=== PATIENT | female | born 1990 | race African-American/Black ===

== ENCOUNTER 2020-09-01 14:42 | Emergency (ER) | payer OTHER ==
[2020-09-01] MEDS ORDERED: Bacitracin 1 PK ONE (15:45)
== END 2020-09-01 15:56 | disposition home or self-care (01) ==
LOC: MADERS 14:42
DX: S71.152A Open bite, left thigh, initial encounter (principal); W54.0XXA Bitten by dog, initial encounter
CPT/HCPCS: 99283

== ENCOUNTER 2023-11-19 05:13 | Emergency (ER) | payer OTHER ==
[2023-11-19] MEDS ORDERED: Dexamethasone 4 MG TAB ONE (05:30)
== END 2023-11-19 05:50 | disposition home or self-care (01) ==
LOC: MADERS 05:13
DX: J03.90 Acute tonsillitis, unspecified (principal)
CPT/HCPCS: 87081; 87430; 87804; 99284; J8540

== ENCOUNTER 2024-01-27 16:59 | Emergency (ER) | payer OTHER ==
[2024-01-27] MEDS ORDERED: Acetaminophen 500 MG TAB ONE (17:49)
[2024-01-27] MEDS ORDERED: Ibuprofen 800 MG TAB ONE (17:49)
[2024-01-27 18:03] LABS: Pregnancy Test - Urine (BHCG) Negative (Negative); Pregu Control Background? CLEAR/WHITE (CLR/WHITE); Pregu Control Bar Appear? YES (CONTROL BAR); Specific Gravity 1.028 (1.002-1.036)
== END 2024-01-27 18:40 | disposition home or self-care (01) ==
LOC: MADERS 16:59
DX: M79.672 Pain in left foot (principal)
CPT/HCPCS: 81025